=== PATIENT | female | born 1980 | race Caucasian/White ===

== ENCOUNTER 2021-10-15 14:53 | Emergency (ER) | payer SELFPAY ==
--- NOTE | 2021-10-15 15:04 | XRR_ITS ---
PROCEDURE INFORMATION: Exam: XR Chest Exam date and time: 10/15/2021 3:04 PM Age: 41 years old Clinical indication: Angina pectoris; Patient HX: Chest pain and vomiting starting this morning TECHNIQUE: Imaging protocol: XR of the chest. Views: 1 view. COMPARISON: No relevant prior studies available. FINDINGS: Lungs: Unremarkable. No consolidation. Pleural spaces: Unremarkable. No pleural effusion. No pneumothorax. Heart/Mediastinum: Unremarkable. No cardiomegaly. Bones/joints: Mild dextrocurvature of the spine is present. XR/XR chest 1V portable [id number] IMPRESSION: No evidence of active cardiopulmonary disease.
[2021-10-15 15:19] VITALS: BP 152/88; PULSE 105; RESP 16; TEMP 36.6; O2SAT 98
[2021-10-15 17:27] LABS: Basophils % 0.3 %; Eosinophils # 0.1 10^3/uL (0.0-0.8); Eosinophils % 1.1 %; Hematocrit 40.6 % (37.0-47.0); Hemoglobin 13.4 g/dL (11.5-15.3); Lymphocytes # 1.7 10^3/uL (0.8-4.8); Lymphocytes % 13.5 %; Mean Corpuscular Hemoglobin 30.8 pg (28.0-34.0); Mean Corpuscular Volume 93.3 fl (81-99); Mean Platelet Volume 11.3 fL (7.4-10.4); Monocytes # 0.6 10^3/uL (0.2-0.9); Monocytes % 4.9 %; Neutrophils # 10.09 10^3/uL (1.8-7.7); Neutrophils % 79.8 %; Nucleated Red Blood Cells % 0 %; Platelet Count 327 10^3/cmm (130-400); Red Blood Count 4.35 10^6/uL (4.1-5.3); White Blood Count 12.7 10^3/uL (4.0-10.0)
[2021-10-15 17:52] LABS: Troponin(5th) Baseline 6 ng/L (0-10)
[2021-10-15 17:55] LABS: Alanine Aminotransferase 21 U/L (0-33); Albumin Level 4.4 g/dL (3.5-5.2); Alkaline Phosphatase 88 IU/L (35-105); Aspartate Amino Transferase 25 U/L (0-32); Blood Urea Nitrogen 8 mg/dL (6-20); Calcium 9.1 mg/dL (8.5-10.5); Carbon Dioxide 22 mmol/L (22-29); Chloride 101 mmol/L (98-107); Globulin 2.2 g/dL (1.3-4.6); Glomerular Filtration Rate 137.4 mL/min (90-130); Glucose 83 mg/dL (65-115); Lipase 26 U/L (13-60); Osmolality Calculated 281 mOsm/kg (285-295); Sodium 137 mmol/L (136-145); Total Bilirubin 0.4 mg/dL (0.15-1.2); Total Protein 6.6 g/dL (6.6-8.7)
--- NOTE | 2021-10-15 20:07 | ED_ITS ---
HPI - Chest Pain General: Chief Complaint: Chest Pain Stated Complaint: CP, VOMITING Time Seen by Provider: 10/15/21 20:07 History of Present Illness: Patient comes in for an evaluation of sudden onset of epigastric to mid chest pain with nausea and vomiting followed by radiation of pain to her left shoulder area. Patient reported this occurred about an hour to hour and a half prior to arrival to the ER. Patient is alert and oriented. Patient has a family history of coronary artery disease. Patient reports that she had a uncle and a brother had early cardiac disease before the age of 50. Patient's father has had cardiac disease but after the age of 50. Patient's mother had was not reported to have any cardiac disease. 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 Patient has resolution of symptoms at time of evaluation. Associated symptoms: Reports vomiting Review of Systems Card: Reports: chest pain GI: Reports: vomiting Physical Exam Const: COMMON NORMALS: alert HENMT: COMMON NORMALS: normocephalic HEAD & SCALP: normocephalic Neck/C-Spine: COMMON NORMALS: full ROM and no JVD Resp: COMMON NORMALS: normal respiratory effort and clear to auscultation bilaterally AUSCULTATION: clear to auscultation bilaterally Cardio: COMMON NORMALS: no JVD, regular rate and regular rhythm RATE: regular rate RHYTHM: regular rhythm GI: COMMON NORMALS: Soft to palpation PALPATION: Yes Soft to palpation Extremity: COMMON NORMALS: normal to inspection Neuro: SENSORIUM/ORIENTATION: Yes alert Psych: COMMON NORMALS: mental status grossly normal Skin: COMMON NORMALS: no rashes or lesions noted GENERAL SKIN EXAM: no rashes or lesions noted Course Vital Signs: Vital signs: Vital Signs Temperature 97.9 F 10/15/21 15:19 Pulse Rate 105 H 10/15/21 15:19 Respiratory Rate 16 10/15/21 15:19 Blood Pressure 152/88 10/15/21 15:19 Pulse Oximetry 98 10/15/21 15:19 MDM - Chest Pain Medical Decision Making 41-year-old female comes in with onset of mid chest pain and nausea and vomiting. Patient then reported some left shoulder discomfort. On exam patient was alert and oriented. Patient had resolution of symptoms. Abdomen is soft. Bowel sounds are present. Vital signs were normal. Heart rate was regular. Differential diagnosis include ACS, gallbladder colic, viral syndrome, gastritis. Baseline troponin and 2-hour troponin were unchanged and normal. EKG showed a sinus rhythm without ectopy or ST elevation with a regular rate of 100. No prior exam was available for comparison. CBC and CMP were unremarkable except for some mild leukocytosis at 12.7. Lipase and liver enzymes were normal. I have a strong suspicion for biliary colic for patient's symptoms. I do not see any signs of ACS at this time. I recommended patient follow-up with primary care for further evaluation. Recommended return to the ER for worsening symptoms or new concerns. Lab Data : 10/15/21 17:12 10/15/21 17:12 Radiology Impressions Chest X-Ray 10/15/21 15:04 IMPRESSION: No evidence of active cardiopulmonary disease. Laboratory Results WBC 12.7 10^3/uL (4.0-10.0) H 10/15/21 17:12 RBC 4.35 10^6/uL (4.1-5.3) 10/15/21 17:12 Hgb 13.4 g/dL (11.5-15.3) 10/15/21 17:12 Hct 40.6 % (37.0-47.0) 10/15/21 17:12 MCV 93.3 fl (81-99) 10/15/21 17:12 MCH 30.8 pg (28.0-34.0) 10/15/21 17:12 MCHC 33.0 g/dL (30.0-36.0) 10/15/21 17:12 RDW 13.0 % (12.1-15.1) 10/15/21 17:12 Plt Count 327 10^3/cmm (130-400) 10/15/21 17:12 MPV 11.3 fL (7.4-10.4) H 10/15/21 17:12 Neut % (Auto) 79.8 % 10/15/21 17:12 Lymph % (Auto) 13.5 % 10/15/21 17:12 [place] % (Auto) 4.9 % 10/15/21 17:12 Eos % (Auto) 1.1 % 10/15/21 17:12 Baso % (Auto) 0.3 % 10/15/21 17:12 Neut # (Auto) 10.09 10^3/uL (1.8-7.7) H 10/15/21 17:12 Lymph # (Auto) 1.7 10^3/uL (0.8-4.8) 10/15/21 17:12 [place] # (Auto) 0.6 10^3/uL (0.2-0.9) 10/15/21 17:12 Eos # (Auto) 0.1 10^3/uL (0.0-0.8) 10/15/21 17:12 Baso # (Auto) 0.0 10^3/uL (0.0-0.1) 10/15/21 17:12 Nucleated RBC % (auto) 0 % 10/15/21 17:12 Nucleated RBCs # 0.0 /100WBC 10/15/21 17:12 Sodium 137 mmol/L (136-145) 10/15/21 17:12 Potassium 4.0 mmol/L (3.5-5.1) 10/15/21 17:12 Chloride 101 mmol/L (98-107) 10/15/21 17:12 Carbon Dioxide 22 mmol/L (22-29) 10/15/21 17:12 Anion Gap 18.0 (5-19) 10/15/21 17:12 BUN 8 mg/dL (6-20) 10/15/21 17:12 Creatinine 0.5 mg/dL (0.5-0.9) 10/15/21 17:12 GFR Calculation 137.4 mL/min (90-130) H 10/15/21 17:12 Glucose 83 mg/dL (65-115) 10/15/21 17:12 Calculated Osmolality 281 mOsm/kg (285-295) L 10/15/21 17:12 Calcium 9.1 mg/dL (8.5-10.5) 10/15/21 17:12 Total Bilirubin 0.4 mg/dL (0.15-1.2) 10/15/21 17:12 AST 25 U/L (0-32) 10/15/21 17:12 ALT 21 U/L (0-33) 10/15/21 17:12 Alkaline Phosphatase 88 IU/L (35-105) 10/15/21 17:12 Troponin T Baseline 6 ng/L (0-10) 10/15/21 17:12 Total Protein 6.6 g/dL (6.6-8.7) 10/15/21 17:12 Albumin 4.4 g/dL (3.5-5.2) 10/15/21 17:12 Globulin 2.2 g/dL (1.3-4.6) 10/15/21 17:12 Lipase 26 U/L (13-60) 10/15/21 17:12 Discharge Plan Discharge Patient Disposition: Home Clinical Impression: Vomiting alone, Atypical chest pain Condition: Stable Prescriptions: New ondansetron 4 mg tablet,disintegrating 4 mg PO Q8H PRN (Reason: nausea and vomiting) Qty: 7 0RF Discharge Orders: Discharge ED (Routine); Ordered 10/15/21 Ordered By: Michael Ann Referrals: Di Renteria, JAYCEE [Primary Care Provider] - Discharge Diet: Usual diet Discharge Activity: Increase activity as tolerated Patient Instructions: Noncardiac Chest Pain (ED) Activity Restrictions/Additional Instructions: Home and rest. Drink plenty of water and fluids. Continue with routine care as directed. Follow-up with primary care regarding further evaluation and t reatment. Your description of your event has a high suspicion for biliary colic may be secondary to gallbladder stones. Although your family history should be considered there was no signs of acute coronary syndrome with this visit. Your primary care office should be able to continue evaluation outpatient to pinpoint the reason for this episode. 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
[2021-10-15 20:51] VITALS: PULSE 70; RESP 16
[2021-10-15 20:53] LABS: Troponin 5 2HR Delta 0 ABS# (0-10)
== END 2021-10-15 20:40 | disposition home or self-care (01) ==
PROVIDERS: Physician Assistant; Emergency Provider Nurse Practitioner Family; PCP Nurse Practitioner Family
DX: R07.89 Other chest pain (principal); R11.11 Vomiting without nausea
CPT/HCPCS: 71045; 80053; 83690; 84484; 85025; 99282